=== PATIENT | female | born 1960 | race African-American/Black ===

== ENCOUNTER 2020-05-13 16:35 | Emergency (ER) | payer OTHER ==
[~2020-05-13] VITALS: Ht 165.1 cm; Wt 108.0 kg
[2020-05-13 16:53] VITALS: BP 161/97
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
--- NOTE | 2020-05-13 17:49 | NUR ---
PT BACK TO BED 12 VIA W/C Addendum: 05/13/20 at 1750 by PABLO FROM BATHROOM
--- NOTE | 2020-05-13 17:50 | NUR ---
TO CT SCAN VIA W/C
[2020-05-13] MEDS ORDERED: ACETAMINOPHEN EXTRA STRENGTH 500 MG TAB PO ONE (18:15)
[2020-05-13] MEDS ORDERED: ONDANSETRON 4 MG ODT PO ONE (18:15)
--- NOTE | 2020-05-13 18:18 | NUR ---
ELAINE HESS SPEAKING WITH PT AT BEDSIDE
--- NOTE | 2020-05-13 18:24 | NUR ---
Patient discharged with v/s stable. Written and verbal after care instructions given and explained. Patient alert, oriented and verbalized understanding of instructions. Ambulatory with steady gait. All questions addressed prior to discharge. ID band removed. Patient advised to follow up with PMD. Rx of ZOFRAN AND TYLENOL given. Patient educated on indication of medication including possible reaction and side effects. Opportunity to ask questions provided and answered. WILL BE PICKED UP BY FAMILY MEMBER
[2020-05-13 18:26] VITALS: BP 130/96
== END 2020-05-13 18:24 | disposition home or self-care (01) ==
LOC: MED 16:35
DX: S00.03XA Contusion of scalp, initial encounter (principal); G56.01 Carpal tunnel syndrome, right upper limb; M19.90 Unspecified osteoarthritis, unspecified site; Z96.652 Presence of left artificial knee joint; Z90.5 Acquired absence of kidney; Z87.828 Personal history of other (healed) physical injury and trauma; Z90.49 Acquired absence of other specified parts of digestive tract; Z98.890 Other specified postprocedural states; X58.XXXA Exposure to other specified factors, initial encounter; Y93.89 Activity, other specified; Y92.89 Other specified places as the place of occurrence of the external cause; Y99.8 Other external cause status
CPT/HCPCS: 70450; 99284; Q0162